=== PATIENT | male | born 1955 | race Caucasian/White ===

== ENCOUNTER 2021-07-31 16:39 | Emergency (ER) | payer SELFPAY ==
[~2021-07-31] VITALS: Ht 170.2 cm; Wt 80.0 kg
[2021-07-31 16:45] VITALS: BP 124/87
== END 2021-07-31 19:01 | disposition left against medical advice (07) ==
LOC: ER 16:39
DX: R42 Dizziness and giddiness (principal); R00.0 Tachycardia, unspecified
CPT/HCPCS: 93005; 99283

== ENCOUNTER 2023-10-31 15:58 | Emergency (ER) | payer SELFPAY ==
[~2023-10-31] VITALS: Ht 167.6 cm; Wt 77.1 kg
[2023-10-31 16:15] VITALS: O2SAT 92
[2023-10-31] MEDS: ADENOSINE 3 MG/ML 2ML VIAL IV ONE (16:15)
[2023-10-31] MEDS: SODIUM CHLORIDE 0.9% 1,000 ML IV ONE (16:29)
[2023-10-31 16:44] LABS: BASOPHILS % 0.3 % (0.0-2.0); EOSINOPHILS % 3.3 % (0.0-5.0); HEMOGLOBIN. 16.7 g/dL (14.0-18.0); LYMPHOCYTES % 34.6 % (20.0-50.0); MEAN CORPUSCULAR HGB CONC 34.1 g/dL (31.0-37.0); MEAN CORPUSCULAR VOLUME 88.1 fL (80.0-94.0); MEAN PLATELET VOLUME 9.3 fl (7.4-10.4); MONOCYTES % 8.8 % (2.0-8.0); PLATELET 409 x1000/uL (130-400); RED BLOOD CELL COUNT 5.56 mill/uL (4.7-6.1); RED CELL DISTRIBUTION WIDTH 13.7 % (11.6-14.6); WHITE BLOOD COUNT 10.4 x1000/uL (4.5-11.0)
[2023-10-31 16:59] LABS: CARBON DIOXIDE 24 mEq/L (21-32); CHLORIDE 106 mEq/L (98-107); CREATININE 1.1 mg/dL (0.6-1.3); GLUCOSE 165 mg/dL (70-105); SODIUM 141 mEq/L (136-145); UREA NITROGEN BLOOD 12 mg/dL (9-23)
[2023-10-31 17:00] LABS: ALANINE AMINOTRANSFERASE 27 IU/L (10-49); ALBUMIN 4.6 g/dL (3.2-4.8); ASPARTATE AMINOTRANSFERASE 47 IU/L (<34); BILIRUBIN TOTAL 0.5 mg/dL (0.1-1.0); CALCIUM 9.4 mg/dL (8.7-10.4); PROTEIN TOTAL 7.5 g/dL (6.0-8.3); TROPONIN I HIGH SENSITIVITY 11 ng/L (3.0-53)
[2023-10-31 17:28] LABS: PROTHROMBIN TIME 10.8 sec (9.6-11.0)
[2023-10-31 18:38] VITALS: BP 136/83; PULSE 94; RESP 17; TEMP 98.4
== END 2023-10-31 22:31 | disposition home or self-care (01) ==
LOC: ER 15:58
DX: I47.10 Supraventricular tachycardia, unspecified (principal)
CPT/HCPCS: 99285; 96360; 71045; 80053; 82962; 85025; 85610; 84484; 36415; 93005; J0153; J7030

== ENCOUNTER 2024-01-26 16:46 | Emergency (ER) | payer SELFPAY ==
[~2024-01-26] VITALS: Ht 167.6 cm; Wt 70.0 kg
[2024-01-26 17:00] VITALS: O2SAT 99
[2024-01-26] MEDS: SODIUM CHLORIDE 0.9% 1,000 ML IV ONE (17:29)
[2024-01-26 17:35] LABS: BASOPHILS % 1.3 % (0.0-2.0); EOSINOPHILS % 1.9 % (0.0-5.0); HEMATOCRIT. 45.5 % (42.0-52.0); HEMOGLOBIN. 15.4 g/dL (14.0-18.0); LYMPHOCYTES % 30.1 % (20.0-50.0); MEAN CORPUSCULAR HGB CONC 33.9 g/dL (31.0-37.0); MEAN CORPUSCULAR VOLUME 88.5 fL (80.0-94.0); MEAN PLATELET VOLUME 9.1 fl (7.4-10.4); MONOCYTES % 8.5 % (2.0-8.0); NEUTROPHILS % 58.2 % (40.0-76.0); PLATELET 391 x1000/uL (130-400); RED BLOOD CELL COUNT 5.14 mill/uL (4.7-6.1); RED CELL DISTRIBUTION WIDTH 14.2 % (11.6-14.6); WHITE BLOOD COUNT 11.9 x1000/uL (4.5-11.0)
[2024-01-26 17:52] LABS: CHLORIDE 108 mEq/L (98-107); POTASSIUM 5.1 mEq/L (3.5-5.1); SODIUM 140 mEq/L (136-145)
[2024-01-26 17:53] LABS: CALCIUM 10.3 mg/dL (8.7-10.4); CARBON DIOXIDE 21 mEq/L (21-32)
[2024-01-26 17:58] LABS: CREATININE 1.3 mg/dL (0.6-1.3); GLUCOSE 105 mg/dL (70-105); UREA NITROGEN BLOOD 14 mg/dL (9-23)
[2024-01-26 18:00] LABS: ALANINE AMINOTRANSFERASE 22 IU/L (10-49); ALBUMIN 4.5 g/dL (3.2-4.8); ASPARTATE AMINOTRANSFERASE 49 IU/L (<34); BILIRUBIN TOTAL 0.5 mg/dL (0.1-1.0)
[2024-01-26 18:01] LABS: PROTEIN TOTAL 7.6 g/dL (6.0-8.3)
[2024-01-26 20:10] VITALS: BP 132/81; PULSE 88; RESP 14; TEMP 97.6
== END 2024-01-26 20:22 | disposition home or self-care (01) ==
LOC: ER 16:46
DX: R06.02 Shortness of breath (principal); Z98.890 Other specified postprocedural states
CPT/HCPCS: 99285; 96360; 71045; 80053; 83735; 85025; 36415; J7030